=== PATIENT | female | born 1980 | race Caucasian/White ===

== ENCOUNTER → 2020-04-24 08:10 | Outpatient (BNVA) | payer OTHER, SELFPAY | PROVIDERS: PCP Internal Medicine; Referring Provider Internal Medicine; Visit Provider Surgery | DX: E66.9 Obesity, unspecified (principal); Z68.37 Body mass index [BMI] 37.0-37.9, adult | CPT/HCPCS: Q3014 ==

== ENCOUNTER 2020-05-08 08:03 | Outpatient (REF) | payer OTHER, SELFPAY ==
[2020-05-08 15:01] LABS: CT PCR NOT DETECTED (Not Detect.); NG PCR NOT DETECTED (Not Detect.)
[2020-05-13 19:37] LABS: HPV mRNA E6/E7 Not Detected (Not Detected)
== END 2020-05-08 08:04 | disposition home or self-care (01) ==
LOC: HO.LAB 08:03
PROVIDERS: Visit Provider Obstetrics & Gynecology
DX: Z01.419 Encounter for gynecological examination (general) (routine) without abnormal findings (principal); N92.0 Excessive and frequent menstruation with regular cycle; N94.10 Unspecified dyspareunia
CPT/HCPCS: 81025; 87491; 87591; 87624; 87625; 88142

== ENCOUNTER → 2020-05-10 10:36 | Outpatient (BNVA) | payer OTHER, SELFPAY | PROVIDERS: PCP Internal Medicine; Visit Provider Physician Assistant | DX: Z76.89 Persons encountering health services in other specified circumstances (principal) ==

== ENCOUNTER 2020-05-13 08:25 | Outpatient (REF) | payer OTHER, SELFPAY ==
--- NOTE | 2020-05-13 | US_ITS ---
EXAMINATION: US PELVIS COMPLETE CLINICAL INFORMATION: Menorrhagia. COMPARISON: None. TECHNIQUE: Transabdominal and transvaginal ultrasound the pelvis is performed. FINDINGS: The uterus is anteverted measuring 7.8 cm in length, 3.6 cm in AP and 4.9 cm in transverse dimension. The endometrial stripe measures 0.84 cm. Uterus is homogeneous in echotexture without any focal lesions. The right ovary measures 9.6 x 7.4 x 10.0 cm and volume 374 mL. There is a complex right ovarian cysts with internal echoes measuring 8.3 x 6.8 x 8.5 cm. Left ovary measures 3.1 x 2.1 x 1.6 cm and volume 5.6 mL. There is normal arterial and venous flow seen within the right ovary. There is no free fluid in the cul-de-sac. US/US pelvic complete IMPRESSION: Complex 8.5 cm right ovarian cyst. Left ovary and uterus are unremarkable.
--- NOTE | 2020-05-13 | US_ITS ---
EXAMINATION: US PELVIS COMPLETE CLINICAL INFORMATION: Menorrhagia. COMPARISON: None. TECHNIQUE: Transabdominal and transvaginal ultrasound the pelvis is performed. FINDINGS: The uterus is anteverted measuring 7.8 cm in length, 3.6 cm in AP and 4.9 cm in transverse dimension. The endometrial stripe measures 0.84 cm. Uterus is homogeneous in echotexture without any focal lesions. The right ovary measures 9.6 x 7.4 x 10.0 cm and volume 374 mL. There is a complex right ovarian cysts with internal echoes measuring 8.3 x 6.8 x 8.5 cm. Left ovary measures 3.1 x 2.1 x 1.6 cm and volume 5.6 mL. There is normal arterial and venous flow seen within the right ovary. There is no free fluid in the cul-de-sac. US/US transvaginal IMPRESSION: Complex 8.5 cm right ovarian cyst. Left ovary and uterus are unremarkable.
== END 2020-05-13 08:26 | disposition home or self-care (01) ==
LOC: HO.HMGCX 08:25
PROVIDERS: PCP Internal Medicine; Visit Provider Obstetrics & Gynecology
DX: N92.0 Excessive and frequent menstruation with regular cycle (principal)
CPT/HCPCS: 76830; 76856

== ENCOUNTER → 2020-05-16 09:12 | Outpatient (BNVA) | payer OTHER, SELFPAY | PROVIDERS: PCP Internal Medicine; Referring Provider Internal Medicine; Visit Provider Nurse Practitioner | DX: Z76.89 Persons encountering health services in other specified circumstances (principal) ==

== ENCOUNTER → 2020-05-17 08:15 | Outpatient (BNVA) | payer OTHER, SELFPAY | PROVIDERS: PCP Internal Medicine; Referring Provider Internal Medicine; Visit Provider Surgery | DX: Z76.89 Persons encountering health services in other specified circumstances (principal) ==

== ENCOUNTER → 2020-05-30 09:03 | Outpatient (BNVA) | payer OTHER, SELFPAY | PROVIDERS: PCP Internal Medicine; Visit Provider Obstetrics & Gynecology | DX: Z76.89 Persons encountering health services in other specified circumstances (principal) ==

== ENCOUNTER 2020-05-30 10:07 | Outpatient (REF) | payer OTHER, SELFPAY ==
[2020-05-31 13:37] LABS: Immunoglobulin A 223 mg/dL (47-310)
[2020-05-31 19:01] LABS: Transglutaminase Ab IgG 1 U/mL; Transglutaminase IgA 1 U/mL
[2020-05-31 19:46] LABS: Gliadin Deamidated IgA Ab 3 Units; Gliadin Deamidated IgG Ab 2 Units
[2020-05-31 21:22] LABS: CA-125 26 U/mL (<35)
[2020-06-05 15:56] LABS: Endomysial IgA Antibody Negative (Negative)
== END 2020-05-30 10:08 | disposition home or self-care (01) ==
LOC: HO.LAB 10:07
PROVIDERS: Obstetrics & Gynecology; PCP Internal Medicine; Visit Provider Nurse Practitioner
DX: K62.5 Hemorrhage of anus and rectum (principal); R10.13 Epigastric pain
CPT/HCPCS: 36415; 82784; 83516; 86255; 86256; 86304

== ENCOUNTER → 2020-05-31 13:58 | Outpatient (BNVA) | payer OTHER, SELFPAY | PROVIDERS: PCP Internal Medicine; Visit Provider Physician Assistant | DX: Z76.89 Persons encountering health services in other specified circumstances (principal) ==

== ENCOUNTER 2020-06-06 13:01 | Outpatient (REF) | payer OTHER, SELFPAY ==
--- NOTE | 2020-06-06 13:06 | CT_ITS ---
EXAMINATION: CT ABDOMEN AND PELVIS WITH CONTRAST CLINICAL INFORMATION: Right ovarian cyst. COMPARISON: Ultrasound 05/13/2020 TECHNIQUE: Multidetector volumetric images were obtained from the superior aspect of the liver through the pubic symphysis following administration 85 mL of Omnipaque 350 intravenous contrast. Sagittal and coronal reformatted images were obtained on the technologist's workstation. Oral contrast: Yes This CT examination was performed using dose optimization techniques as appropriate, variously including the following: *Automated exposure control *Adjustment of mA and/or kV according to patient size (this includes techniques or standardized protocols for targeted exams where dose is matched to indication/reason for exam; i.e. extremities or head) *Use of iterative reconstruction technique DLP: 682 mGy-cm FINDINGS: LUNG BASES: The visualized lung bases are unremarkable. LIVER, GALLBLADDER, AND BILIARY TREE: The liver is normal in size, shape, and attenuation. 0.7 cm cyst in segment 7 of the liver. Probable area of focal fatty infiltration along the falciform. No biliary ductal dilatation is present. The gallbladder is unremarkable with no evidence of radiopaque gallstones, gallbladder wall thickening, or obvious pericholecystic inflammatory changes. PANCREAS: Unremarkable. SPLEEN: Unremarkable. ADRENAL GLANDS: Unremarkable. KIDNEYS AND URETERS: The kidneys are normal in size, shape, and attenuation. No hydronephrosis, hydroureter, or calculi seen. No perinephric stranding. BLADDER: Unremarkable. GASTROINTESTINAL TRACT: The stomach is unremarkable. Normal caliber small bowel. There is no obstruction. Normal appendix. No colonic wall thickening or inflammatory change. No free air or free fluid. ABDOMINAL WALL: No significant hernia is appreciated. LYMPH NODES: Normal. VASCULAR: Unremarkable. PELVIC VISCERA: Anteverted uterus. Unremarkable appearance of the left adnexa. Right adnexal cyst is noted as seen on previous ultrasound. This measures 10 x 8.3 x 8.5 cm. OSSEOUS STRUCTURES: No acute or suspicious osseous abnormality. Mild degenerative changes in the spine. Vacuum disc phenomenon at L5-S1. Bilateral L5 pars defects. CT/CT abdomen pelvis w con IMPRESSION: Prominent right adnexal cyst is again noted, as seen on previous ultrasound. Further gynecologic evaluation is suggested. No lymphadenopathy. Probable fatty infiltration along the falciform ligament in the liver.
[2020-06-06] MEDS: iohexoL 350 MG/ML 100 ML INFUS..BTL IV (15:38)
== END 2020-06-06 13:02 | disposition home or self-care (01) ==
LOC: HO.CT 13:01
PROVIDERS: PCP Internal Medicine; Visit Provider Surgery
DX: N83.291 Other ovarian cyst, right side (principal)
CPT/HCPCS: 74177; Q9967

== ENCOUNTER 2020-06-07 07:57 | Outpatient (REF) | payer OTHER, SELFPAY ==
[2020-06-07 14:46] LABS: Basophils Absolute Auto 0.1 X10*3/uL (0.0-0.2); Basophils Percent Auto 0.8 % (0-2); Eosinophils Absolute Auto 0.1 X10*3/uL (0.0-0.4); Eosinophils Percent Auto 1.5 % (0-4); Hematocrit 41.6 % (37-47); Hemoglobin 13.3 g/dl (12.0-16.0); Imm Gran Abs Auto 0.03 X10*3/uL (0.00-0.03); Imm Gran Pct Auto 0.4 % (0.0-0.4); Lymphocytes Absolute Auto 1.8 X10*3/uL (1.2-4.9); Lymphocytes Percent Auto 23.1 % (20-40); MANUAL DIFF FLAG NO; Mean Corpuscular Hemoglobin 27.6 pg (27.0-33.0); Mean Corpuscular Volume 86.3 fL (80-98); Mean Platelet Volume 11.1 fL (9.4-12.3); Monocytes Absolute Auto 0.5 X10*3/uL (0.1-1.2); Monocytes Percent Auto 6.4 % (2-11); Neutrophils Absolute Auto 5.3 X10*3/uL (2.0-8.3); Neutrophils Percent Auto 67.8 % (45-73); Platelet Count 366 X10*3/uL (160-400); Red Blood Count 4.82 X10*6/uL (4.20-5.50); White Blood Count 7.9 X10*3/uL (4.8-10.8)
[2020-06-07 14:52] LABS: INTERNATIONAL NORM RATIO 1.1 (0.9-1.1)
[2020-06-07 14:55] LABS: Partial Thromboplastin Time 35.1 SEC (24.1-38.0)
[2020-06-07 15:08] LABS: Estimated Average Glucose 100 mg/dL; Hemoglobin A1c % 5.1 %
[2020-06-07 15:26] LABS: Alanine Aminotransferase 16 U/L (0-31); Albumin Level 4.2 g/dL (3.5-5.0); Alkaline Phosphatase 104 U/L (39-117); Anion Gap 13 (12-20); Aspartate Amino Transferase 15 U/L (5-31); Bilirubin Total 0.4 mg/dL (0.0-1.0); Blood Urea Nitrogen 9 mg/dL (9-16); C Reactive Protein 0.57 mg/dL (< or = 0.50); Calcium 8.8 mg/dL (8.4-10.2); Carbon Dioxide 29 mmol/L (22-29); Chloride 103 mmol/L (96-108); Cholesterol 208 mg/dL; Estimated Glomerular Filt Rate > 60; Glucose Random 78 mg/dL (60-115); HDL Cholesterol 45 mg/dL; LDL Cholesterol Calculated 138 mg/dl; Potassium 4.5 mmol/l (3.3-5.1); Sodium 140 mmol/L (135-145); Triglycerides 127 mg/dL
[2020-06-07 15:46] LABS: TSH reflex Free T4 1.58 mIU/mL (0.32-4.0)
[2020-06-08 07:16] LABS: Insulin Level Total 6.4 uIU/mL
[2020-06-10 13:12] LABS: Calcium (PTHI) 9.2 mg/dL (8.6-10.2); PTHI 29 pg/mL (14-64)
== END 2020-06-07 07:58 | disposition home or self-care (01) ==
LOC: HO.LAB 07:57
PROVIDERS: PCP Internal Medicine; Visit Provider Surgery
DX: N83.291 Other ovarian cyst, right side (principal); E66.9 Obesity, unspecified; R11.0 Nausea; Z68.36 Body mass index [BMI] 36.0-36.9, adult
CPT/HCPCS: 36415; 80053; 80061; 83036; 83525; 83970; 84443; 85025; 85610; 85730; 86140

== ENCOUNTER 2020-06-18 06:14 | Inpatient (IN) | payer OTHER, SELFPAY ==
[2020-06-11 09:33] VITALS: BMI 35.3
--- NOTE | 2020-06-17 12:23 | HO.ANESPROP2 ---
Documented by User: Britney Belle 06/17/20 12:30 HPI - Anesthesia Eval Consult details Narrative: 39yo F for gastric sleeve PMFSH Past Medical History Medical History (Updated 06/18/20 @ 07:30 by Serena Mccarthy) Alopecia Increased BMI Obesity Ovarian follicular cyst PCOS (polycystic ovarian syndrome) Plantar fasciitis Tinnitus Family History Family History Father HTN (hypertension) Afib Gout Sleep apnea Mother Blood disorder Sister Overweight Sister Overweight Sister Overweight Sleep apnea Surgical History Surgical History History of removal of skin mole History of wisdom tooth extraction, class II edentulism Social History Social History Household Members: Significant Other Are you a primary hearing care professional to a significant other at home: No Alcohol intake: current Alcohol intake frequency: holidays/special occasions only Smoking Status: Never smoker Second Hand Smoke Exposure: No Use of substances other than those prescribed or required for medical reasons: No Have you been hit, kicked, punched, or otherwise hurt by someone within the past year? 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 Sexual orientation: Straight/Heterosexual Gender identity: female Meds Allergies Allergy/AdvReac Type Severity Reaction Status Date / Time No Known Allergies Allergy Verified 06/07/20 09:12 Home Medications Medication Instructions Recorded Confirmed Type cholecalciferol (vitamin D3) 125 125 mcg PO DAILY 04/24/20 06/11/20 History mcg (5,000 unit) capsule iron,carbonyl 65 mg-vitamin C 125 1 tab PO DAILY 05/08/20 06/11/20 History mg tablet,delayed release Exam Exam Date and Time: June 17, 2020 1223 Height,Weight and Vital Signs: Height 5 ft 8.5 in Weight 107.048 kg Pertinent Lab Results Pertinent Lab Results: Laboratory Tests 06/07/20 13:10 Blood Type O Positive Antibody Screen NEGATIVE Laboratory Tests 06/07/20 06/07/20 06/07/20 13:10 13:10 13:10 WBC 7.9 Hgb 13.3 Hct 41.6 Plt Count 366 PT 13.0 INR 1.1 APTT 35.1 Sodium 140 Potassium 4.5 Chloride 103 Carbon Dioxide 29 BUN 9 Creatinine 0.73 Hemoglobin A1c % Total Bilirubin 0.4 AST 15 ALT 16 Alkaline Phosphatase 104 C-Reactive Protein 0.57 H Total Protein 7.0 Albumin 4.2 TSH 1.58 06/07/20 13:10 WBC Hgb Hct Plt Count PT INR APTT Sodium Potassium Chloride Carbon Dioxide BUN Creatinine Hemoglobin A1c % 5.1 Total Bilirubin AST ALT Alkaline Phosphatase C-Reactive Protein Total Protein Albumin TSH Narrative Narrative: EKG 02/2020: NSR @ 66 Assessment and Plan Assessment Anesthesia Assessment: Chart Reviewed Documented by User: Serena Mccarthy 06/18/20 07:32 [facility] Past Medical History Medical History (Updated 06/18/20 @ 07:30 by Serena Mccarthy) Alopecia Increased BMI Obesity Ovarian follicular cyst PCOS (polycystic ovarian syndrome) Plantar fasciitis Tinnitus Family History Family History Father HTN (hypertension) Afib Gout Sleep apnea Mother Blood disorder Sister Overweight Sister Overweight Sister Overweight Sleep apnea Family history of problems with anesthesia: No Surgical History Surgical History History of removal of skin mole History of wisdom tooth extraction, class II edentulism History of Problems with Anesthesia: No Social History Social History Household Members: Significant Other Are you a primary hearing care professional to a significant other at home: No Alcohol intake: current Alcohol intake frequency: holidays/special occasions only Smoking Status: Never smoker Second Hand Smoke Exposure: No Use of substances other than those prescribed or required for medical reasons: No Have you been hit, kicked, punched, or otherwise hurt by someone within the past year? 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 Sexual orientation: Straight/Heterosexual Gender identity: female Meds Allergies Allergy/AdvReac Type Severity Reaction Status Date / Time No Known Allergies Allergy Verified 06/07/20 09:12 Home Medications Medication Instructions Recorded Confirmed Type cholecalciferol (vitamin D3) 125 125 mcg PO DAILY 04/24/20 06/11/20 History mcg (5,000 unit) capsule iron,carbonyl 65 mg-vitamin C 125 1 tab PO DAILY 05/08/20 06/11/20 History mg tablet,delayed release Exam Height,Weight and Vital Signs: Vital Signs Temp Pulse Resp BP Pulse Ox 06/18/20 06:28 98.4 F 69 16 139/69 100 Airway Mallampati Class: II TM Dist: >3cm Neck ROM: Full Loose/Missing/Broken Teeth: No (Crowns intact) Heart: RRR Lungs: CTAB Assessment and Plan Assessment Anesthesia Assessment: Anesthesia Plan Discussed and Chart Reviewed Final Anesthetic Review NPO: Yes ASA Class: III Final Preanesthetic Review: No Changes in Pt Med Stat, Meds/Allgs Chart Reviewed, Consent Obtained/Reviewed and Anes Risks/Benef Reviewed Patient Risk: Intermediate Procedure Risk: Intermediate Anesthetic Plan Anesthetic Plan: GA Disposition: Standard PACU
--- NOTE | 2020-06-17 17:38 | MHC.SHP ---
Pre-Procedural Eval Section A The patient is an INPATIENT: Yes The History & Physical has been completed within 30 days and I have reviewed it.: Yes Section B Chief Complaint: Obesity Details of Present Illness: Obesity Relevant Family History (Specify if Yes): No Present Medications: see Short Stay Collaborative assessment Medical History: No relevant PMH History of Previous Operations: No relevant previous surgery Allergies: Allergies Allergy/AdvReac Type Severity Reaction Status Date / Time No Known Allergies Allergy Verified 06/07/20 09:12 Review of Systems Sugical H&P ROS: Negative: Constitution, Cardiovascular, Respiratory, Neurological, Psychiatric, Hem-Onc, Allergic/Immunologic, Gastrointestinal, Genitourinary, Musculoskeletal, Integumentary, Endocrine and Eyes/Ears/Nose/Throat Exam Surgical H&P Exam: Normal: HEENT, Normal: Heart, Normal: Lungs, Normal: Extremities, Normal: Abdomen, Normal: Skin and Normal: Neurological Plan Diagnosis/Plan: Unchanged Patient has been examined and remains a candidate for the planned procedure
[2020-06-18] VITALS (24 sets, daily range): BP systolic 139–187; BP diastolic 69–104; PULSE 65–102; RESP 15–20; TEMP 36.2–37.1; O2SAT 98–100
[2020-06-18] MEDS: ceFAZolin Sodium/Dextrose,Iso 2 GM/50 ML PIGGYBACK IV ×2 (06:24→13:55)
[2020-06-18] MEDS: Lactated Ringers 1,000 ML 100 ML IVCONT ×2 (06:43→21:55)
[2020-06-18] MEDS: Lactated Ringers 1,000 ML 999 ML IVCONT (06:43)
[2020-06-18 06:45] LABS: COVID-19 Test Negative (Negative); IDNOW Serial# 9DD0AD1C
[2020-06-18 07:12] LABS: UPreg QC Valid YES; Urine Pregnancy NEGATIVE (NEGATIVE)
--- NOTE | 2020-06-18 10:37 | P.BOP_ITS ---
Brief Operative Note Date of Service: 06/18/20 Pre-op diagnosis: Severe obesity with comorbidities Post-op diagnosis: same (& 1) hiatal hernia, 2) right ovarian complex cyst) Procedure: INITIAL PATIENT BMI ON PRESENTATION AT OUR OFFICE: 40.1 kg/m2 LAST BMI BEFORE SURGERY: 34.4 kg/m2 COMORBIDITIES: large right ovarian cyst, PCOS, GERD, liver hemangioma, liver fibrosis, plantar fasciitis The patient participated in an intensive weekly lifestyle intervention and exercise program during which the patient has lost between the initial office visit and the last preoperative visit 56.6lbs, or 19.57% of initial actual body weight. The patient met the BMI-criteria for bariatric surgery based on the BMI on initial presentation. The patient should not be penalized for achieving such weight loss because it is not sustainable long-term without surgical intervention and it was achieved in preparation for bariatric surgery under my direction and based on my published research ([email or web address] and [email or web address]) that a 10% preoperative weight loss improves long-term weight loss after surgery and reduces perioperative complications. Insurance carriers such as [facility] have endorsed my recommendations and have included in their policies criteria to include a 10% preoperative weight loss requirement. PROCEDURE: Esophago-gastroscopy, laparoscopic repair of incarcerated diaphragmatic hernia, laparoscopic sleeve gastrectomy and laparoscopic gastropexy INDICATIONS: This is a 39 year-old female who was electively scheduled for laparoscopic, possibly open sleeve gastrectomy. The risks and complications of the procedure were discussed with the patient in advance, particularly the possibility of ; pulmonary embolism; staple line leak; bleeding; GERD; cardiac, pulmonary, or renal complications; as well as long-term problems such as insufficient weight loss, vitamin deficiency, strictures, or ulcers. The patient understood all the risks, and was in agreement to proceed with surgery. DESCRIPTION OF PROCEDURE: After informed consent was obtained from the patient, the patient was given preoperative antibiotics, and was transferred to the operating room. After successful induction of general anesthesia, pneumatic compressive devices were placed on both lower extremities. An upper endoscopy was performed next. The oropharynx and esophagus appeared to be within normal limits. There was a diaphragmatic hernia present of moderate size consistent with the findings of the preoperative upper GI. The stomach was entered. Then after all fluid and air were suctioned and the stomach was fully decompressed, the scope was withdrawn and secured in the mid esophagus. The patient was then prepped and draped in the usual sterile manner, and a bdominal access was established at the right upper quadrant with the Nils technique. A 12 mm blunt port was inserted, and the abdomen was insufflated with CO2 to a pressure of 15 mmHg. Under direct visualization, additional ports were placed, specifically two 5 mm Versi-step ports to the left upper quadrant, and a 5 mm Versi-Step port to the right upper quadrant. 1% lidocained plan was used to infiltrate all port sites as well as all fascia defects. The pelvis was explored. The right ovarian cyst was identified and photographed. In a similar fashion the left ovary and fallopian tube were also seen and photographed. Following that, the patient was placed in a steep reverse Trendelenburg position. An additional 5 mm port was placed to the right flank for the Mediflex retractor that was used to retract the left lobe of the liver. The gastro-esophageal fat pad was opened with the ultrasonic device (Thunderbeat, Olympus) and the anterior esophagus and hiatus were exposed. The angle of His was opened with the ultrasonic device the fundus of the stomach from any diaphragmatic and splenic attachments. I then opened the gastrocolic ligament between the transverse colon and the greater curvature of the stomach with the ultrasonic device to enter the lesser sac and facilitate the ligation of the short gastric vessels. I started at a mid-point along the greater curvature and using the Thunderbeat, all short gastric vessels were divided all the way to the angle of His until the left omega was completely dissected at its entirety. I then divided the gastro-colic ligament distally to a distance of about 3-4 cm proximal to the esophagus. There were extensive congenital adhesions between the pancreas and posterior gastric wall. Those were lysed completely with the ultrasonic device. Adhesiolysis took approximately 45 min to complete. There was an obvious significant-sized hiatal hernia. I continued dissecting along the hiatus toward the left omega and the angle of His. I fully mobilized the fat pad that was incarcerated in the hernia. I then continued by dissecting even further into the posterior retro-esophageal space all the way to the angle of His. I continued to mobilize the esophagus into the mediastinum circumferentially. Both vagal nerves were seen and preserved. There was a replaced left hepatic artery that was identified and preserved. The right omega was completely dissected. At that point, I was able to have at least 3 to 5 cm of esophagus into the abdomen. After I completely mobilized the esophagus from both the left and right omega and I had a good mobilization of the esophagus circumferentially, I closed the hernia defect with three interrupted #0 Surgidac sutures using the Endo Stitch device, two of which were placed posterior and one anterior to the esophagus. The stomach was then divided transversely with two Endo JACOB-45 and four JACOB-60 articulating purple loads using the Energy Excelerator stapler and loads. Every effort was made that the gastric sleeve had a tubular shape and an even caliber throughout. Once the sleeve resection was completed, the staple line of the gastric sleeve was reinforced with Hemoclips. The resected stomach was retrieved without difficulty from the Nils port. A gastropexy was then performed in order to prevent postoperative GERD and partial gastric volvulus. Several interrupted 2.0 Surgidac sutures were placed between the sleeve's staple line and the previously divided greater omentum and gastro-colic ligament using the Endo-Stitch device. An upper endoscopy was performed. There was no narrowing at the GE junction. The scope was easily advanced all the way to the pylorus which was clearly visualized. There was no narrowing anywhere and the sleeve's caliber was even throughout. The sleeve's staple line was inspected and there was no evidence of ischemia, bleeding or dehiscence. At that point the gastroscope was withdrawn from the patient?s mouth while we were decompressing the bowel and the stomach from any remaining air. I looked into the lesser sac to see how the sleeve was situating and it was situating well. There was no bleeding from the staple line, spleen, or short gastric vessels. The Mediflex retractor was removed, and the undersurface of the liver was inspected and there was no bleeding. The patient was placed in supine position. I closed the fascial defect of the 12 mm port site with a figure of eight #1 Polysorb suture. Then 100 cc 0.25 % Marcaine plain with 10 mg of Dexamethasone were used to infiltrate the fascial closure as well as all skin incisions. At this point, the abdomen was deflated, all ports were removed under direct vision, and no bleeding was noted from any of the port sites. The skin incisions were irrigated with saline and were closed with 4-0 absorbable monofilament sutures. Steri-Strips and OpSites were used to cover all incisions. The patient was extubated and was transferred in stable condition to the recovery room for further care. I was present and performed all epperson parts of the procedure. Ms. Esquivel was the registered nurse first assistant. There were no residents to assist with this case. Brayden Christianson MD, PhD, FACS Surgeon: Steve Christianson MD Anesthesia: GETA, local and other (TAP block) Pilot: Vivien Esquivel Estimated blood loss (mL): 50 IV fluids (mL): 1,600 Urine output (mL): 0 Pathology: other (stomach) Condition: stable Disposition: PACU
--- NOTE | 2020-06-18 10:51 | MHC.SHP ---
Pre-Procedural Eval Section A The patient is an INPATIENT: Yes The History & Physical has been completed within 30 days and I have reviewed it.: Yes Section B Chief Complaint: Obesity Details of Present Illness: obesity Relevant Family History (Specify if Yes): No Relevant Social History: None Present Medications: see Short Stay Collaborative assessment Medical History: No relevant PMH History of Previous Operations: No relevant previous surgery Allergies: Allergies Allergy/AdvReac Type Severity Reaction Status Date / Time No Known Allergies Allergy Verified 06/07/20 09:12 Review of Systems Sugical H&P ROS: Negative: Constitution, Cardiovascular, Respiratory, Neurological, Psychiatric, Hem-Onc, Allergic/Immunologic, Gastrointestinal, Genitourinary, Musculoskeletal, Integumentary, Endocrine and Eyes/Ears/Nose/Throat Exam Surgical H&P Exam: Normal: HEENT, Normal: Heart, Normal: Lungs, Normal: Extremities, Normal: Abdomen, Normal: Skin and Normal: Neurological Plan Diagnosis/Plan: Unchanged Patient has been examined and remains a candidate for the planned procedure
--- NOTE | 2020-06-18 10:52 | PM.PNGS ---
Subjective Subjective Date of Service: 06/19/20 Interval history: Patient has mild incisional pain. Was able to ambulate and use the incentive spirometer. Physical Exam Vital Signs: Vital Signs: Last Vital Signs Temp 97.6 F 06/18/20 10:21 Pulse 88 06/18/20 10:31 Resp 15 06/18/20 10:36 BP 173/89 H 06/18/20 10:36 Pulse Ox 100 06/18/20 10:36 Body Mass Index 35.3 GI: Inspection: Yes normal to inspection, Yes incision (dry and clean) and Yes obesity Extrem: Right lower extremity: normal to inspection (no calf tenderness) Left lower extremity: normal to inspection (no calf tenderness) Progress Note: A&P Assessment and plan (1) Obesity: Status: Acute Assessment and Plan: 39 year old female was admitted 06/18/20 with morbid obesity and comorbidities. Problem 1: s/p laparoscopic sleeve gastrectomy, gastropexy and diaphragmatic hernia repair Status: Doing well Plan: Check am labs, If OK, will continue phase 1 bariatric diet and discharge later today. (2) Complex cyst of right ovary: Status: Acute (3) BMI 34.0-34.9,adult: Status: Acute (4) GERD (gastroesophageal reflux disease): Status: Acute (5) Diaphragmatic hernia: Status: Acute (6) S/P laparoscopic sleeve gastrectomy: Status: Acute (7) Status post repair of paraesophageal diaphragmatic hernia: Status: Acute (8) Liver fibrosis: Status: Acute (9) Alopecia: Status: Inactive (10) PCOS (polycystic ovarian syndrome): Status: Inactive Fall Risk Details Current Medications: Current Medications Generic Name Dose Route Start Last Admin Trade Name Freq PRN Reason Stop Dose Admin Famotidine 20 mg 06/18/20 10:30 Famotidine/Pf 20 Mg/2 Ml Vial IVPUSH BID AMARA Fentanyl 25 mcg 06/18/20 08:37 Fentanyl Citrate/Pf 100 Mcg/2 Ml Vial IVPUSH Q5M PRN Pain, Moderate (Pain Scale 4-6 Hydromorphone HCl 0.25 mg 06/18/20 08:37 Hydromorphone Hcl 0.5 Mg/0.5 Ml Syringe IVPUSH Q5M PRN Pain, Severe (Pain Scale 7-10) Hydromorphone HCl 0.25 mg 06/18/20 10:22 Hydromorphone Hcl 0.5 Mg/0.5 Ml Syringe IVPUSH Q4H PRN Pain, Moderate (Pain Scale 4-6 Lactated Ringer's 1,000 mls @ 100 mls/hr 06/18/20 06:15 06/18/20 06:43 Lr IVCONT 100 mls/hr .Q10H AMARA Administration Promethazine HCl 6.25 mg/ 50.25 mls @ 201 mls/hr 06/18/20 08:37 Sodium Chloride IV ONCE PRN Nausea and Vomiting Lactated Ringer's 1,000 mls @ 150 mls/hr 06/18/20 10:30 Lr IVCONT .Q6H40M AMARA Cefazolin Sodium/Dextrose 2 gm in 50 mls @ 100 mls/hr 06/18/20 13:30 Ancef IV 06/18/20 13:59 ONCE@1330 AMARA Acetaminophen 1,000 mg in 100 mls @ 16.7 mls/hr 06/18/20 11:00 Ofirmev IV .Q6H [facility] Metoclopramide HCl 10 mg 06/18/20 10:22 Metoclopramide Hcl 10 Mg/2 Ml Vial IVPUSH Q6H PRN Nausea Ondansetron HCl 4 mg 06/18/20 08:37 Ondansetron Hcl 4 Mg/2 Ml Vial IVPUSH ONCE PRN Nausea and Vomiting Ondansetron HCl 4 mg 06/18/20 10:30 Ondansetron Hcl 4 Mg/2 Ml Vial IVPUSH Q8H [facility] Sodium Chloride 3 ml 06/18/20 16:00 0.9 % Sodium Chloride Flush 3 Ml Syringe IVFLUSH QSHIFT [facility] Time Spent With Patient Time: Total time spent is greater than 50% in coordination of care (as documented) at patient's floor/unit and/or counseling patient: Time with patient: less than 15 minutes
[2020-06-18] MEDS: Famotidine/PF 20 MG/2 ML VIAL IVPUSH ×2 (10:53→21:55)
[2020-06-18 11:14] LABS: Hematocrit 41.6 % (37-47); Hemoglobin 13.7 g/dl (12.0-16.0)
[2020-06-18 12:02] LABS: Anion Gap 24 (12-20); Blood Urea Nitrogen 15 mg/dL (9-16); Calcium 8.2 mg/dL (8.4-10.2); Carbon Dioxide 12 mmol/L (22-29); Chloride 106 mmol/L (96-108); Creatinine Clr Calc Pharmacy 129.8; Estimated Glomerular Filt Rate > 60; Glucose Random 91 mg/dL (60-115); Potassium 5.1 mmol/l (3.3-5.1); Sodium 137 mmol/L (135-145)
[2020-06-18] MEDS: Lactated Ringers 1,000 ML 150 ML IVCONT (13:59)
[2020-06-18 14:13] LABS: Basophils Percent Auto 0.1 % (0-2); Hematocrit 39.9 % (37-47); Imm Gran Abs Auto 0.04 X10*3/uL (0.00-0.03); Imm Gran Pct Auto 0.3 % (0.0-0.4); Lymphocytes Absolute Auto 0.4 X10*3/uL (1.2-4.9); Lymphocytes Percent Auto 2.5 % (20-40); MANUAL DIFF FLAG SCAN; Mean Corpuscular HGB Conc 32.6 g/dl (31.0-35.0); Mean Corpuscular Hemoglobin 27.8 pg (27.0-33.0); Mean Corpuscular Volume 85.3 fL (80-98); Monocytes Absolute Auto 0.1 X10*3/uL (0.1-1.2); Monocytes Percent Auto 0.8 % (2-11); Neutrophils Absolute Auto 13.8 X10*3/uL (2.0-8.3); Neutrophils Percent Auto 96.3 % (45-73); Platelet Count 302 X10*3/uL (160-400); Red Blood Count 4.68 X10*6/uL (4.20-5.50); Red Cell Distribution Width 15.1 % (11.0-16.0); SCAN SMEAR FLAG 1; White Blood Count 14.3 X10*3/uL (4.8-10.8)
[2020-06-18 14:33] LABS: SLIDE REVIEW VERIFIED
--- NOTE | 2020-06-18 14:47 | MHC.CM.PN ---
PATIENT IS INDEPENDENT WITH HER ADLS. NO DME OR SERVICES IN THE HOME. SHE IS CURRENTLY ON [place] [facility] [place] AND WILL NOT REQUIRE A WORK NOTE. PATIENT UNDERSTANDS IMPORTANCE OF ASSIGNING A HCP AGENT AND WILL CONSIDER HER OPTIONS TONIGHT. CASE MANAGEMENT TO RETURN TOMORROW (06/19/2020) TO ASSIST WITH THE COMPLETION. PLAN IS HOME WEDNESDAY - SELF CARE.
[2020-06-18] MEDS: Metoclopramide HCl 10 MG/2 ML VIAL IVPUSH (18:24)
[2020-06-18] MEDS: ondansetron HCL 4 MG/2 ML VIAL IVPUSH (21:55)
[2020-06-18] MEDS: 0.9 % Sodium Chloride Flush 3 ML SYRINGE IVFLUSH (21:55)
[2020-06-19 03:28] VITALS: BP 143/74; PULSE 74; RESP 20; TEMP 36.3; O2SAT 97
[2020-06-19 04:17] LABS: Basophils Percent Auto 0.2 % (0-2); Eosinophils Percent Auto 0.1 % (0-4); Hematocrit 37.4 % (37-47); Hemoglobin 12.4 g/dl (12.0-16.0); Imm Gran Abs Auto 0.02 X10*3/uL (0.00-0.03); Imm Gran Pct Auto 0.2 % (0.0-0.4); Lymphocytes Absolute Auto 1.6 X10*3/uL (1.2-4.9); Lymphocytes Percent Auto 13.6 % (20-40); MANUAL DIFF FLAG NO; Mean Corpuscular HGB Conc 33.2 g/dl (31.0-35.0); Mean Corpuscular Hemoglobin 27.8 pg (27.0-33.0); Mean Corpuscular Volume 83.9 fL (80-98); Mean Platelet Volume 10.2 fL (9.4-12.3); Monocytes Absolute Auto 1.2 X10*3/uL (0.1-1.2); Monocytes Percent Auto 10.7 % (2-11); Neutrophils Absolute Auto 8.7 X10*3/uL (2.0-8.3); Neutrophils Percent Auto 75.2 % (45-73); Platelet Count 317 X10*3/uL (160-400); Red Blood Count 4.46 X10*6/uL (4.20-5.50); Red Cell Distribution Width 15.1 % (11.0-16.0); White Blood Count 11.5 X10*3/uL (4.8-10.8)
[2020-06-19 04:58] LABS: Anion Gap 16 (12-20); Blood Urea Nitrogen 8 mg/dL (9-16); Calcium 8.2 mg/dL (8.4-10.2); Carbon Dioxide 17 mmol/L (22-29); Chloride 106 mmol/L (96-108); Creatinine Clr Calc Pharmacy 147.2; Estimated Glomerular Filt Rate > 60; Glucose Random 87 mg/dL (60-115); Sodium 135 mmol/L (135-145)
[2020-06-19] MEDS: ondansetron HCL 4 MG/2 ML VIAL IVPUSH (06:16)
[2020-06-19 07:47] VITALS: BP 161/81; PULSE 67; RESP 18; TEMP 36.6; O2SAT 97
[2020-06-19] MEDS: Famotidine/PF 20 MG/2 ML VIAL IVPUSH (08:04)
--- NOTE | 2020-06-19 08:32 | MHC.CM.PN ---
PATIENT IS DISCHARGED HOME - SELF CARE. FAMILY TO TRANSPORT. RN AWARE OF PLAN
[2020-06-19] MEDS: Metoclopramide HCl 10 MG/2 ML VIAL IVPUSH (08:43)
--- NOTE | 2020-06-19 08:46 | MHC.CM.PN ---
PATIENT ASSIGNED HER SIGNIFICANT OTHER (ARIES LANTIGUA) HER HCP AGENT. PATIENT HAS ORIGINAL AND ONE COPY. COPY ALSO IN CHART.
--- NOTE | 2020-06-19 09:15 | HO.POSTANES ---
Post Anesthesia Evaluation Post Anesthesia Evaluation Vital Signs: Vital Signs Temp Pulse Resp BP Pulse Ox 06/19/20 07:47 97.8 F 67 18 161/81 H 97 06/19/20 03:28 97.4 F 74 20 143/74 H 97 06/18/20 23:13 97.6 F 69 20 152/81 H 98 Anesthesia: General Endotracheal-GETA Mental Status: Awake Pain Control: Satisfactory Nausea/Vomiting: None Hydration: Adequate Anesthesia-Related Issues: No Anes. Related Issues
--- NOTE | 2020-07-10 13:49 | P.DS_ITS ---
DS: Providers Provider Date of admission: 06/18/20 06:14 Primary care physician: Mary Ellen Tavarez MD DS: Diagnosis Discharge Diagnosis (1) Obesity: Status: Acute (2) Complex cyst of right ovary: Status: Acute (3) BMI 34.0-34.9,adult: Status: Acute (4) GERD (gastroesophageal reflux disease): Status: Acute (5) Diaphragmatic hernia: Status: Acute (6) S/P laparoscopic sleeve gastrectomy: Status: Acute (7) Status post repair of paraesophageal diaphragmatic hernia: Status: Acute (8) Liver fibrosis: Status: Acute (9) Alopecia: Status: Inactive (10) PCOS (polycystic ovarian syndrome): Status: Inactive DS: Medications Discharge Medications Home Medications: Home Medications Medication Instructions Recorded Confirmed cholecalciferol (vitamin D3) 50 50 mcg PO DAILY 07/01/20 mcg (2,000 unit) capsule Previous Rx's Medication Instructions Recorded ondansetron HCl 4 mg tablet 4 mg PO Q6H PRN #30 tab 06/07/20 pantoprazole 40 mg tablet,delayed 40 mg PO DAILY #30 tab 06/07/20 release sucralfate 100 mg/mL oral 10 ml PO BID #420 ml 06/07/20 suspension DS: Summary Time Spent with Patient Time attestation: Total time spent providing and/or coordinating discharge services: Physical Exam Vital Signs: Vital Signs: Last Vital Signs Temp 97.8 F 06/19/20 07:47 Pulse 67 06/19/20 07:47 Resp 18 06/19/20 07:47 BP 161/81 H 06/19/20 07:47 Pulse Ox 97 06/19/20 07:47 Body Mass Index 35.3 DS: Data Data Completed and Pending Completed studies during hospitalization [Text1]: Pending at discharge 06/18/20 08:32 Surgical [PTH] Routine Procedures Excision of Stomach, Percutaneous Endoscopic Approach, Vertical (06/18/20) Release Peritoneum, Percutaneous Endoscopic Approach (06/18/20) Repair Diaphragm, Percutaneous Endoscopic Approach (06/18/20) Labs on day of discharge: 06/07/20 13:10 Type and Screen Routine 06/17/20 07:30 Lactated Ringers [Lr] 1,000 ml IVCONT 999 mls/hr 06/18/20 06:11 Acetaminophen [Ofirmev] 1,000 mg in 100 ml IV PREOP 06/18/20 06:15 COVID-19 ID NOW (Pereyra) Stat Lactated Ringers [Lr] 1,000 ml IVCONT 100 mls/hr 06/18/20 06:21 Acetaminophen [Ofirmev] 1,000 mg in 100 ml IV As directed ceFAZolin Sodium/Dextrose,Iso [Ancef] 2 gm in 50 ml .ROUTE As directed 06/18/20 06:30 ceFAZolin Sodium/Dextrose,Iso [Ancef] 2 gm in 50 ml IV PREOP@0630 06/18/20 06:55 Ur Preg Test Stat 06/18/20 07:04 dexAMETHasone Sod Phosphate/PF [Decadron] 10 mg .ROUTE .STK-MED ONE 06/18/20 07:05 Lidocaine HCl 1 % MPF [Xylocaine 1 % MPF] 5 ml .ROUTE .STK-MED ONE 06/18/20 07:06 Bupivacaine MPF 0.25 % [Sensorcaine-MPF 0.25% 10 ML] 10 ml .ROUTE .STK-MED ONE 06/18/20 07:17 Lidocaine HCl 2 % MPF [Xylocaine 2 % MPF] 5 ml .ROUTE .STK-MED ONE Rocuronium [place] [Zemuron] 100 mg IV .STK-MED ONE propofoL [Diprivan] 200 mg IVPUSH .STK-MED ONE 06/18/20 07:18 Midazolam HCl/PF [Versed] 2 mg .ROUTE .STK-MED ONE fentaNYL citrate/PF [Sublimaze] 50 mcg .ROUTE .STK-MED ONE 06/18/20 08:01 HYDROmorphone HCl [Dilaudid] 2 mg .ROUTE .STK-MED ONE Succinylcholine Chloride [Quelicin] 100 mg IVPUSH .STK-MED ONE dexAMETHasone sod phosphate [Decadron] 4 mg .ROUTE .STK-MED ONE ondansetron HCL [Zofran] 4 mg .ROUTE .STK-MED ONE 06/18/20 08:32 Surgical [PTH] Routine 06/18/20 08:37 HYDROmorphone HCl [Dilaudid] 0.25 mg IVPUSH Q5M PRN Promethazine HCL [Phenergan] 6.25 mg 0.9 % Sodium Chloride [Ns] 50 ml IV ONCE fentaNYL citrate/PF [Sublimaze] 25 mcg IVPUSH Q5M PRN ondansetron HCL [Zofran] 4 mg IVPUSH ONCE PRN 06/18/20 08:38 Continuous pulse oximetry CONT Vital Signs Q1H Vital Signs Q5MIN 06/18/20 08:39 Oxygen administration Nasal Cannula 2 lpm 06/18/20 08:46 Sugammadex Sodium [Bridion] 200 mg IVPUSH .STK-MED ONE 06/18/20 Breakfast NPO Diet 06/18/20 10:22 Ambulate Q4H WHILE AWAKE Compression Therapy QSHIFT Head of bed elevation DIRECTED Incentive Spirometry Q1HR WHILE AWAKE Intake and Output Q4HR Code Status Routine HYDROmorphone HCl [Dilaudid] 0.25 mg IVPUSH Q4H PRN Metoclopramide HCl [Reglan] 10 mg IVPUSH Q6H PRN 06/18/20 10:23 Vital Signs Q4H 06/18/20 10:30 Famotidine/PF [Pepcid/PF] 20 mg IVPUSH BID Lactated Ringers [Lr] 1,000 ml IVCONT 150 mls/hr ondansetron HCL [Zofran] 4 mg IVPUSH Q8H 06/18/20 10:47 Famotidine/PF [Pepcid/PF] 20 mg IVPUSH .STK-MED ONE 06/18/20 11:00 Acetaminophen [Ofirmev] 1,000 mg in 100 ml IV 16.7 mls/hr 06/18/20 11:06 Basic Metabolic Panel Stat Hemoglobin and Hematocrit Stat 06/18/20 11:32 Promethazine HCL [Phenergan] 25 mg IV .STK-MED ONE 06/18/20 13:07 Acetaminophen [Ofirmev] 1,000 mg in 100 ml IV As directed 06/18/20 13:30 ceFAZolin Sodium/Dextrose,Iso [Ancef] 2 gm in 50 ml IV ONCE@1330 06/18/20 14:04 Complete Blood Count Auto Diff DAILY@0500 SLIDE REVIEW Routine 06/18/20 16:00 0.9 % Sodium Chloride Flush [NS Flush] 3 ml IVFLUSH QSHIFT 06/18/20 22:00 ondansetron HCL [Zofran] 4 mg IVPUSH Q8H 06/19/20 04:08 Basic Metabolic Panel DAILY@0500 Complete Blood Count Auto Diff DAILY@0500 Laboratory Last Values WBC 11.5 X10*3/uL (4.8-10.8) H 06/19/20 04:08 RBC 4.46 X10*6/uL (4.20-5.50) 06/19/20 04:08 Hgb 12.4 g/dl (12.0-16.0) 06/19/20 04:08 Hct 37.4 % (37-47) 06/19/20 04:08 MCV 83.9 fL (80-98) 06/19/20 04:08 MCH 27.8 pg (27.0-33.0) 06/19/20 04:08 MCHC 33.2 g/dl (31.0-35.0) 06/19/20 04:08 RDW 15.1 % (11.0-16.0) 06/19/20 04:08 Plt Count 317 X10*3/uL (160-400) 06/19/20 04:08 MPV 10.2 fL (9.4-12.3) 06/19/20 04:08 Immature Gran % (Auto) 0.2 % (0.0-0.4) 06/19/20 04:08 Neut % (Auto) 75.2 % (45-73) H 06/19/20 04:08 Lymph % (Auto) 13.6 % (20-40) L 06/19/20 04:08 [place]osh % (Auto) 10.7 % (2-11) 06/19/20 04:08 Eos % (Auto) 0.1 % (0-4) 06/19/20 04:08 Baso % (Auto) 0.2 % (0-2) 06/19/20 04:08 Lymph # (Auto) 1.6 X10*3/uL (1.2-4.9) 06/19/20 04:08 [place]osh # (Auto) 1.2 X10*3/uL (0.1-1.2) 06/19/20 04:08 Eos # (Auto) 0.0 X10*3/uL (0.0-0.4) 06/19/20 04:08 Baso # (Auto) 0.0 X10*3/uL (0.0-0.2) 06/19/20 04:08 Abs Immat Gran (auto) 0.02 X10*3/uL (0.00-0.03) 06/19/20 04:08 Absolute Neuts (auto) 8.7 X10*3/uL (2.0-8.3) H 06/19/20 04:08 Absolute Nucleated RBC 0.000 X10*3/uL (0.0-0.012) 06/19/20 04:08 Nucleated RBC % (auto) 0.0 /100WBC (0.0-0.2) 06/19/20 04:08 Smear Tech's Comments VERIFIED 06/18/20 14:04 Sodium 135 mmol/L (135-145) 06/19/20 04:08 Potassium 4.0 mmol/l (3.3-5.1) D 06/19/20 04:08 Chloride 106 mmol/L (96-108) 06/19/20 04:08 Carbon Dioxide 17 mmol/L (22-29) L 06/19/20 04:08 Anion Gap 16 (-20) 06/19/20 04:08 BUN 8 mg/dL (9-16) L 06/19/20 04:08 Creatinine 0.67 mg/dL (0.5-1.4) 06/19/20 04:08 Estim Creat Clear Calc 147.2 06/19/20 04:08 Estimated GFR > 60 06/19/20 04:08 Random Glucose 87 mg/dL (60-115) 06/19/20 04:08 Calcium 8.2 mg/dL (8.4-10.2) L 06/19/20 04:08 Urine Test NEGATIVE (NEGATIVE) 06/18/20 06:55 COVID-19 (RUBY) Negative (Negative) 06/18/20 06:15 COVID-19 Clin Com See Note 06/18/20 06:15 Blood Type O Positive 06/07/20 13:10 Antibody Screen NEGATIVE 06/07/20 13:10 Discharge Plan Discharge Anticipated Discharge Date/Time: 06/19/20 11:27 Patient Disposition: Home, Self-Care Referrals: Mary Ellen Tavarez MD [Primary Care Provider] - Discharge Medications: Continued pantoprazole 40 mg tablet,delayed release (DR/EC) 40 mg PO DAILY Qty: 30 RF: 2 sucralfate 100 mg/mL suspension 10 ml PO BID Qty: 420 RF: 2 ondansetron HCl [Zofran] 4 mg tablet 4 mg PO Q6H PRN (Reason: nausea and vomiting) Qty: 30 RF: 0 Discontinued polyethylene glycol 3350 [Miralax] 17 gram powder in packet 17 g PO DAILY Qty: 14 RF: 0 cholecalciferol (vitamin D3) 125 mcg (5,000 unit) capsule 125 mcg PO DAILY RF: 0 Vitron-C 65 mg iron- 125 mg tablet,delayed release (DR/EC) 1 tab PO DAILY RF: 0 No Action cholecalciferol (vitamin D3) 50 mcg (2,000 unit) capsule 50 mcg PO DAILY RF: 0 Discharge Orders: Discharge Order (Routine); Ordered 06/19/20 Ordered By: Steve Christianson Activity on Discharge: No heavy lifting Discharge Date/Time: 06/19/20 09:35 Activity Restrictions/Additional Instructions: INSTRUCTIONS You are being discharged home on bariatric diet phase 1. Continue this today and start bariatric phase 2 tomorrow morning. Follow all instructions in the bariatric hand book and call with any questions. No lifting, sexual relations, tub baths or vigorous exercise, do not restart until told to do so by Dr Christianson. No alcohol, tobacco or caffeine products. ADMITTING DIAGNOSIS: morbid obesity, ovarian cysts DISCHARGE DIAGNOSIS: same, s/p laparoscopic sleeve gastrectomy, hiatal hernia and bilateral hemorrhagic ovarian cysts PAST SURGICAL HISTORY: wisdom teeth PROCEDURE: upper endoscopy, laparoscopic sleeve gastrectomy with gastropexy, repair of hiatal hernia DISCHARGE SUMMARY: History of Present Illness: The patient is a 39 year-old woman with a BMI of 40.09 kg/m2 and associated co-morbidities as described above. The patient had extensive work-up,lost 55.8 lbs preoperatively and was electively scheduled for laparoscopic, possible open sleeve gastrectomy and gastropexy. Risks and complications of the surgery were discussed with the patient in advance, particularly the possibility of , pulmonary embolism, anastomotic leak, bleeding, bowel injury, GERD, cardiac, renal or pulmonary complications. The patient understood all the risks and was in agreement with the surgical plan. Hospital Course: The patient underwent an uneventful laparoscopic sleeve gastrectomy with gastropexy and repair of hiatal hernia on the day of admission. Postoperatively, the patient was transferred to the surgical floor. The patient was on IV Acetaminophen and IV dilaudid for pain control. Patient was started on bariatric phase 1 diet POD #0. On postoperative day one, the patient was feeling well without nausea, vomiting, fevers, or tachycardia. The patient had some mild incisional pain. The abdomen was soft. On the morning of postoperative day one, the patient was continued on 1 ounce of water or ice every half hour. During the first day, the patient did fairly well, having some incisional pain, but able to ambulate adequately and to tolerate liquids well. Since the patient is doing well, we decided that the patient was ready to be discharged. The patient was given instructions to follow-up with me next week and to call my office for any fever over 101, persistent abdominal pain, nausea, vomiting, GERD, change in the color of the SRINATH fluid, symptoms of DVT such as calf tenderness, or leg swelling, or pulmonary embolism such as chest pain or shortness of breath. The patient was also instructed to drink 40-60 ounces of liquids per day using the 1-ounce cups. The patient was given prescription for Tylenol for pain, Zofran prn for nausea, and pantoprazole and carafate. The patient was encouraged to ambulate and use the incentive spirometer. The patient was allowed to shower, but no baths, and encouraged to stay active at home. All of these instructions were given to the patientpersonally. All questions were answered and the patient understood all instructions, the instructions were also given to the patient in print. Visit Report Forms: Patient Portal Discharge page Care Plan Goals: weight loss Health Concerns: obesity and bilateral hemorrhagic ovarian cysts Plan of Treatment: see discharge instructions, also follow up with gynecology per Dr Christianson
== END 2020-06-19 09:35 | disposition home or self-care (01) | DRG 403 ==
LOC: HO.SSSA 10:33 → HO.S3 11:39
PROVIDERS: Internal Medicine; Nurse Practitioner; Physician Assistant; Admitting Provider Surgery; PCP Internal Medicine; Visit Provider Surgery
PROC: 0DB64Z3 Excision of Stomach, Percutaneous Endoscopic Approach, Vertical (ICD-10-PCS; CPT 43845; principal; 2020-06-18 07:30)
DX: E66.01 Morbid (severe) obesity due to excess calories (principal); K44.0 Diaphragmatic hernia with obstruction, without gangrene; E28.2 Polycystic ovarian syndrome; Z68.35 Body mass index [BMI] 35.0-35.9, adult; Z20.828 Contact with and (suspected) exposure to other viral communicable diseases; K66.0 Peritoneal adhesions (postprocedural) (postinfection); L65.9 Nonscarring hair loss, unspecified; Z79.899 Other long term (current) drug therapy
CPT/HCPCS: 36415; 80048; 81025; 85014; 85018; 85025; 86850; 86900; 86901; 87635; 88307; 88342; 99024; A4649; J0131; J0330; J0690; J1100; J1170; J2250; J2405; J2765; J3010

== ENCOUNTER → 2020-06-24 09:01 | Outpatient (BNVA) | payer OTHER, SELFPAY | PROVIDERS: PCP Internal Medicine; Visit Provider Surgery | DX: Z76.89 Persons encountering health services in other specified circumstances (principal) ==

== ENCOUNTER 2020-07-01 13:37 | Outpatient (REF) | payer OTHER, SELFPAY | END 2020-07-01 13:38 | disposition home or self-care (01) | LOC: HO.LAB 13:37 | PROVIDERS: Visit Provider Internal Medicine | DX: Z20.828 Contact with and (suspected) exposure to other viral communicable diseases (principal) | CPT/HCPCS: C9803; U0003 ==

== ENCOUNTER 2020-07-09 15:37 | Outpatient (REF) | payer OTHER, SELFPAY | END 2020-07-09 15:38 | disposition home or self-care (01) | LOC: HO.LAB 15:37 | PROVIDERS: Visit Provider Internal Medicine | DX: Z20.828 Contact with and (suspected) exposure to other viral communicable diseases (principal) | CPT/HCPCS: C9803; U0003 ==

== ENCOUNTER → 2020-07-26 08:17 | Outpatient (BNVA) | payer OTHER, SELFPAY | PROVIDERS: PCP Internal Medicine; Visit Provider Surgery | DX: Z76.89 Persons encountering health services in other specified circumstances (principal) ==

== ENCOUNTER 2020-08-06 10:11 | Outpatient (REF) | payer OTHER, SELFPAY ==
[2020-08-07 18:37] LABS: CA-125 33 U/mL (<35)
== END 2020-08-06 10:12 | disposition home or self-care (01) ==
LOC: HO.LAB 10:11
PROVIDERS: PCP Internal Medicine; Visit Provider Obstetrics & Gynecology
DX: N92.0 Excessive and frequent menstruation with regular cycle (principal)
CPT/HCPCS: 36415; 58100; 81025; 86304; 88305

== ENCOUNTER 2020-08-12 15:26 | Outpatient (REF) | payer OTHER, SELFPAY ==
--- NOTE | 2020-08-12 15:34 | US_ITS ---
EXAMINATION: US PELVIS COMPLETE CLINICAL INFORMATION: Follow up right ovarian cyst. COMPARISON: Ultrasound pelvis 05/13/[address] abdomen 06/06/2020. TECHNIQUE: Transabdominal and transvaginal ultrasound of the pelvis is performed. FINDINGS: The uterus is anteverted, anteflexed measuring 7.5 cm in length, 3.1 cm in AP and 5.7 cm in transverse dimension. Endometrial thickness is 1.2 cm. The right ovary measures 1.6 x 1.0 x 1.7 cm and volume 1.4 mL. Previously right ovary measured 9.6 x 7.4 x 10.0 cm. On the present exam there is a large cyst with echogenic debris within measuring 11.1 x 8.0 x 8.7 cm in the right adnexa, likely right para ovarian or exophytic ovarian cyst. Previously the cyst measured 8.3 x 6.8 x 8.5 cm. Posterior to this cyst is a solid mass-like lesion with vascular flow within measuring 2.9 x 2.2 x 3.4 cm. The exact etiology is not known. This could be a exophytic uterine fibroid or para ovarian solid lesion. The bladder is compressed anteriorly. The left ovary measures 3.04 x 1.99 x 1.58 cm and volume 5.0 mL. There are small follicular cysts measuring 0.9 x 0.7 x 0.8 cm. There is a tiny amount of free fluid in the pelvis. US/US pelvic complete IMPRESSION: Large right adnexal cyst with echogenic debris within likely a complex cyst which has increased in size since 05/13/2020. There is now a solid smaller lesion posterior to this complex cyst. It was not seen on the previous two exams, ultrasound or CT. Question exophytic uterine fibroid, paraovarian solid mass or compressed rectum. It has vascular flow within. Recommend CT pelvis with contrast. Small cyst left ovary. The uterus is unremarkable.
== END 2020-08-12 15:27 | disposition home or self-care (01) ==
LOC: HO.HMGCX 15:26
PROVIDERS: PCP Internal Medicine; Visit Provider Obstetrics & Gynecology
DX: N83.291 Other ovarian cyst, right side (principal)
CPT/HCPCS: 76830; 76856

== ENCOUNTER → 2020-08-20 11:29 | Outpatient (BNVA) | payer OTHER, SELFPAY | PROVIDERS: PCP Internal Medicine; Visit Provider Obstetrics & Gynecology ==

== ENCOUNTER → 2020-09-25 07:29 | Outpatient (BNVA) | payer OTHER, SELFPAY | PROVIDERS: PCP Internal Medicine; Visit Provider Surgery ==

== ENCOUNTER → 2020-11-20 07:11 | Outpatient (BNVA) | payer OTHER, SELFPAY | PROVIDERS: PCP Internal Medicine; Visit Provider Surgery ==